=== PATIENT | female | born 1995 | race Caucasian/White ===

== ENCOUNTER 2017-10-19 16:46 | Emergency (ER) | payer MEDICAID ==
[~2017-10-19] VITALS: Ht 152.4 cm; Wt 51.4 kg
[~2017-10-19 16:46] MED LIST: DOCU-131 PO; FERR325T18 PO; IBUP-1222 PO; OXYC-302 PO; PREN1TAB25 PO
[2017-10-19 16:47] VITALS: BP 91/55
[2017-10-19] MEDS ORDERED: DEXAMETHASONE 4 MG TABLET PO ONE (17:30)
[2017-10-19] MEDS ORDERED: DEXAMETHASONE 4 MG TABLET ONE (17:34)
== END 2017-10-19 19:03 | disposition home or self-care (01) ==
LOC: ED 18:57
DX: J02.0 Streptococcal pharyngitis (principal)
CPT/HCPCS: 99283